=== PATIENT | male | born 1965 | race Caucasian/White ===

== ENCOUNTER → 2018-10-31 | Outpatient (REF) ==
--- NOTE | 2018-10-31 18:42 | REP ---
Clinical: Pain. Technique: AP, lateral, bilateral oblique views of the right knee. Findings: Evidence of prior ACL repair. Advanced degenerative changes include subchondral sclerosis, cortical irregularities, and suspected calcified loose bodies in the joint space. No acute fracture dislocation. No obvious effusion. 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 Electronically Signed by Feliciano Aguilar MD 10/31/2018 06:33 P
--- NOTE | 2018-10-31 18:45 | REP ---
Clinical: Pain Technique: AP, Lateral and open mouth views. Findings: Reversal of normal lordosis and advanced multilevel degenerative changes noted. Impression: Advanced degenerative changes warrant MRI followup evaluation if symptoms persist. Electronically Signed by Feliciano Aguilar MD 10/31/2018 06:36 P
== END ==
LOC: M SMT 13:58
PROVIDERS: ATTEND Internal Medicine
DX: Z00.00 Encounter for general adult medical examination without abnormal findings (principal)

== ENCOUNTER → 2022-02-28 | Outpatient (REF) | payer MEDICAID, SELFPAY ==
[2022-02-28 17:57] LABS: AMORPHOUS SEDIMENT SMALL (NEGATIVE); APPEARANCE, URINE HAZY (CLEAR); BACTERIA, URINE AUTO NEGATIVE (NEGATIVE); BILIRUBIN, URINE AUTO NEGATIVE (NEGATIVE); BLOOD, URINE BLOOD NEGATIVE (NEGATIVE); COLOR, URINE YELLOW (YELLOW); GLUCOSE, URINE (UA) AUTO NEGATIVE (NEGATIVE); KETONE, URINE AUTO NEGATIVE (NEGATIVE); LEUKOCYTE ESTERASE, URINE AUTO NEGATIVE (NEGATIVE); MUCUS, URINE SMALL (NEGATIVE); NITRITE, URINE AUTO NEGATIVE (NEGATIVE); PROTEIN, URINE AUTO NEGATIVE (NEGATIVE); RBC, URINE AUTO 0 /HPF (0-3); SPECIFIC GRAVITY URINE AUTO 1.011 (1.002-1.035); SQUAMOUS EPITHELIAL CELL UR AU 0 /HPF (0-6); UROBILINOGEN, URINE AUTO 0.2 mg/dL (0.0-2.0); WBC, URINE AUTO 1 /HPF (0-3)
== END ==
LOC: M SMT 16:40
PROVIDERS: ATTEND Physician Assistant
DX: R31.9 Hematuria, unspecified (principal)